=== PATIENT | female | born 1975 | race Caucasian/White ===

== ENCOUNTER 2021-10-15 20:00 | Emergency (ER) | payer SELFPAY ==
[2021-10-15 23:19] LABS: Urine Blood Negative (Negative); Urine Glucose Negative (Negative); Urine Protein Negative (Negative); Urine Specific Gravity >=1.030 (1.005-1.030); Urine pH 5.5 (5.0-7.0)
[2021-10-15] MEDS ORDERED: NA CHLORIDE 0.9% 1,000 ML ONE (23:58)
[2021-10-15] MEDS ORDERED: ONDANSETRON 4 MG/2 ML VIAL ONE (23:58)
[2021-10-15] MEDS ORDERED: MORPHINE 4 MG/ML SYR ONE (23:58)
[2021-10-15] MEDS ORDERED: NA CHLORIDE 0.9% 100 ML IV ONE (23:58)
[2021-10-15] MEDS ORDERED: CEFTRIAXONE 1000 MG/VIAL ONE (23:58)
[2021-10-16 00:11] LABS: Absolute Lymphocytes (CBC) 1.7 K/uL (0.7-4.9); Hematocrit 36.9 % (36.0-45.0); MPV 9.4 fL (7.6-11.3); RBC Red Blood Cell Count 4.23 M/uL (3.86-4.86)
[2021-10-16 00:24] LABS: Calcium Oxalate Crystals- Ur MANY (NONE SEEN)
[2021-10-16 00:25] LABS: Urine Bacteria 20-50 /HPF (<20); Urine RBC <5 /HPF (NONE SEEN); Urine Urothelial Cells <5 /HPF (NONE SEEN)
[2021-10-16 00:26] LABS: Albumin 3.9 g/dL (3.4-5.0); Bilirubin Total 1.1 mg/dL (0.2-1.0); Protein, Total 7.9 g/dL (6.4-8.2)
--- NOTE | 2021-10-16 03:15 | EDPHYS ---
Physician Documentation [facility] Name: Isela Stratton Age: 46 yrs Sex: Female : 1975 Arrival Date: 10/15/2021 Time: 20:04 Bed 14 Private MD: ED Physician Barrett Retana HPI: 10/15 23:30 This 46 yrs old Female presents to ER via Ambulatory with complaints of Urinary mh7 Problem, Flank Pain, Back Pain. 23:30 The patient complains of pain in the right flank. The pain radiates to the abdomen. mh7 Onset: The symptoms/episode began/occurred 10 day(s) ago. Modifying factors: The symptoms are alleviated by nothing. the symptoms are aggravated by nothing. Associated signs and symptoms: Pertinent positives: dysuria, hematuria, Pertinent negatives: diarrhea, dizziness, fever, urinary frequency, headache, nausea, pain radiating to the lower extremities, vomiting. Severity of pain: At its worst the pain was moderate 3 day(s) ago, in the emergency department the pain is unchanged. 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 - Social history:: Smoking status: Patient denies any tobacco usage or history of. ROS: 23:30 Constitutional: Negative for fever, chills, and weight loss, Eyes: Negative for injury, mh7 pain, redness, and discharge, ENT: Negative for injury, pain, and discharge, Neck: Negative for injury, pain, and swelling, Cardiovascular: Negative for chest pain, palpitations, and edema, Respiratory: Negative for shortness of breath, cough, wheezing, and pleuritic chest pain, MS/Extremity: Negative for injury and deformity, Skin: Negative for injury, rash, and discoloration, Neuro: Negative for headache, weakness, numbness, tingling, and seizure, Psych: Negative for depression, anxiety, suicide ideation, homicidal ideation, and hallucinations, Allergy/Immunology: Negative for hives, rash, and allergies, Endocrine: Negative for neck swelling, polydipsia, polyuria, polyphagia, and marked weight changes, Hematologic/Lymphatic: Negative for swollen nodes, abnormal bleeding, and unusual bruising. Exam: 23:30 Constitutional: This is a well developed, well nourished patient who is awake, alert, mh7 and in no acute distress. Head/Face: Normocephalic, atraumatic. Eyes: Pupils equal round and reactive to light, extra-ocular motions intact. Lids and lashes normal. Conjunctiva and sclera are non-icteric and not injected. Cornea within normal limits. Periorbital areas with no swelling, redness, or edema. Neck: Trachea midline, no thyromegaly or masses palpated, and no cervical lymphadenopathy. Supple, full range of motion without nuchal rigidity, or vertebral point tenderness. No Meningismus. Chest/axilla: Normal chest wall appearance and motion. Nontender with no deformity. No lesions are appreciated. Cardiovascular: Regular rate and rhythm with a normal S1 and S2. No gallops, murmurs, or rubs. Normal PMI, no JVD. No pulse deficits. Respiratory: Lungs have equal breath sounds bilaterally, clear to auscultation and percussion. No rales, rhonchi or wheezes noted. No increased work of breathing, no retractions or nasal flaring. Abdomen/GI: Soft, non-tender, with normal bowel sounds. No distension or tympany. No guarding or rebound. No evidence of tenderness throughout. 23:30 Skin: Warm, dry with normal turgor. Normal color with no rashes, no lesions, and no evidence of cellulitis. MS/ Extremity: Pulses equal, no cyanosis. Neurovascular intact. Full, normal range of motion. Neuro: Awake and alert, GCS 15, oriented to person, place, time, and situation. Cranial nerves II-XII grossly intact. Motor strength 5/5 in all extremities. Sensory grossly intact. Cerebellar exam normal. Normal gait. 23:30 Back: normal spinal alignment noted, CVA tenderness, that is moderate, is noted on the right, vertebral tenderness, is not appreciated, muscle spasm, is not present. 23:30 Psych: Awake, alert, with orientation to person, place and time. Behavior, mood, and 7 affect are within normal limits. Vital Signs: 20:32 BP 145 / 91; Pulse 91; Resp 16; Temp 97.5(TE); Pulse Ox 99% on R/A; Weight 84.82 kg jb4 (R); Height 5 ft. 8 in. (172.72 cm) (R); Pain 8/10; 10/16 00:26 BP 125 / 70; Pulse 77; Resp 16; Temp 98.3; Pulse Ox 98% on R/A; Pain 0/10; festus 01:18 BP 119 / 73; Pulse 85; Resp 16; Temp 97.3; Pulse Ox 100% on R/A; festus 02:00 BP 117 / 62; Pulse 81; Resp 16; Temp 97.5; Pulse Ox 100% on R/A; festus 03:13 BP 113 / 59; Pulse 80; Resp 16; Temp 98.2; Pulse Ox 100% on R/A; festus 10/15 20:32 Body Mass Index 28.43 (84.82 kg, 172.72 cm) jb4 MDM: 03:12 Differential diagnosis: nephrolithiasis, pyelonephritis, UTI, diverticulitis. Data [facility] reviewed: vital signs, nurses notes, lab test result(s), CBC, electrolytes, urinalysis, UPT: negative radiologic studies, CT scan. Data interpreted: Pulse oximetry: on room air is 100 %. Interpretation: normal. Counseling: I had a detailed discussion with the patient and/or guardian regarding: the historical points, exam findings, and any diagnostic results supporting the discharge/admit diagnosis, lab results, radiology results, the need for outpatient follow up, to return to the emergency department if symptoms worsen or persist or if there are any questions or concerns that arise at home. Response to treatment: the patient's symptoms have markedly improved after treatment, patient is well hydrated. Tolerating PO intake without difficulty. 03:15 Patient medically screened. [facility] 10/15 23:19 Order name: Urine Dipstick-Ancillary; Complete Time: 23:53 EDMS 10/15 23:20 Order name: Urine Microscopic Only; Complete Time: 00:46 [facility] 10/15 23:20 Order name: Urine Culture [facility] 10/15 23:21 Order name: CBC with Diff; Complete Time: 00:46 [facility] 10/15 23:21 Order name: CMP; Complete Time: 00:46 [facility] 10/15 23:21 Order name: Lipase; Complete Time: 00:46 [facility] 10/15 23:02 Order name: Urine Dipstick-Ancillary (obtain specimen); Complete Time: 23:20 lp1 10/16 00:24 Order name: Stone Protocol EDSD 10/15 23:21 Order name: IV Saline Lock; Complete Time: 00:01 lp1 10/15 23:21 Order name: Labs collected and sent; Complete Time: 00:01 lp1 10/15 23:21 Order name: Urine Test (obtain specimen); Complete Time: 23:26 lp1 Administered Medications: 00:00 Drug: NS 0.9% 1000 ml Route: IV; Rate: 1000 ml; Site: right antecubital; festus 03:10 Follow up: IV Status: Completed infusion; IV Intake: 1000ml fest[facility] 00:00 Drug: morphine 4 mg Route: IVP; Site: right antecubital; [facility] 01:19 Follow up: Response: No adverse reaction; Pain is decreased fest[facility] 03:09 Follow up: Response: No adverse reaction [facility] 00:00 Drug: Zofran (Ondansetron) 4 mg Route: IVP; Site: right antecubital; [facility]us 01:19 Follow up: Response: No adverse reaction [facility] 03:09 Follow up: Response: No adverse reaction [facility] 00:00 Drug: Rocephin (cefTRIAXone) 1 grams Route: IV; Rate: per protocol; Site: right festus antecubital; 01:19 Follow up: IV Status: Completed infusion; IV Intake: 100ml [facility] 03:09 Follow up: IV Status: Completed infusion; IV Intake: 100ml festus Disposition Summary: 10/16/21 03:15 Discharge Ordered Location: Home [facility] Problem: new [facility] Symptoms: have improved [facility] Condition: Stable [facility] Diagnosis - Pyelonephritis acute [facility] Followup: [facility] - With: Private Physician - When: 1 - 2 days - Reason: Worsening of condition, Recheck today's complaints, Continuance of care, Re-evaluation by your physician Discharge Instructions: - Discharge Summary Sheet [facility] - Pyelonephritis, Adult, [id number] [facility] Forms: - Medication Reconciliation Form [facility] - Thank You Letter [facility] - Antibiotic Education [facility] - Prescription Opioid Use [facility] Prescriptions: - Ibuprofen 800 mg Oral Tablet - take 1 tablet by ORAL route every 8 hours As needed take with food; 15 tablet; [facility] Refills: 0, Product Selection Permitted - Cipro 500 mg Oral Tablet - take 1 tablet by ORAL route every 12 hours for 10 days; 20 tablet; Refills: 0, mh7 Product Selection Permitted Signatures: Dispatcher [employer] EDBritt Aguilar, CATRACHITA RN lp1 Truman Gama, PAIRER SUBSTANDARD-C PAIRER SUBSTANDARD-Cla1 Oc Owens RN RN jb4 Barrett Retana MD MD 7 Susan Finch RN RN festus Corrections: (The following items were deleted from the chart) 00:24 10/15 23:29 Abdomen Pelvis Wo [id number].BRZ ordered. EDMS EDMS
--- NOTE | 2021-10-16 03:15 | ER ---
Nurse's Notes [facility] Name: Isela Stratton Age: 46 yrs Sex: Female : 1975 Arrival Date: 10/15/2021 Time: 20:04 Bed 14 Private MD: Diagnosis: Pyelonephritis acute Presentation: 10/15 20:32 Chief complaint: Patient states: I think I have a kidney stone or kidney infection. The jb4 pain is on my right side and goes to my right lower back. Coronavirus screen: At this time, the client does not indicate any symptoms associated with coronavirus-19. Ebola Screen: No symptoms or risks identified at this time. Initial Sepsis Screen: Does the patient meet any 2 criteria? No. Patient's initial sepsis screen is negative. Does the patient have a suspected source of infection? Yes: Dysuria/Frequency/Urgency/UTI. Risk Assessment: Do you want to hurt yourself or someone else? Patient reports no desire to harm self or others. Onset of symptoms was October 15, 2021. Transition of care: patient was not received from another setting of care. 20:32 Method Of Arrival: Ambulatory jb4 20:32 Acuity: AMARILIS 3 jb4 Triage Assessment: 10/16 00:27 General: Appears. festus 03:12 General: Behavior is calm, cooperative. festus 03:12 Pain: Denies pain. 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 - Social history:: Smoking status: Patient denies any tobacco usage or history of. Screenin/16 00:27 Abuse screen: Denies threats or abuse. Denies injuries from another. Nutritional festus screening: No deficits noted. Tuberculosis screening: No symptoms or risk factors identified. Fall Risk None identified. Assessment: 10/15 23:20 Reassessment: No changes from previously documented assessment. I recv'd the pt to room festus #14 at 2300. She appears to be in NAD. 10/16 03:12 Neuro: Level of Consciousness is awake, alert, obeys commands. festus Vital Signs: 10/15 20:32 BP 145 / 91; Pulse 91; Resp 16; Temp 97.5(TE); Pulse Ox 99% on R/A; Weight 84.82 kg jb4 (R); Height 5 ft. 8 in. (172.72 cm) (R); Pain 8/10; 10/16 00:26 BP 125 / 70; Pulse 77; Resp 16; Temp 98.3; Pulse Ox 98% on R/A; Pain 0/10; festus 01:18 BP 119 / 73; Pulse 85; Resp 16; Temp 97.3; Pulse Ox 100% on R/A; festus 02:00 BP 117 / 62; Pulse 81; Resp 16; Temp 97.5; Pulse Ox 100% on R/A; festus 03:13 BP 113 / 59; Pulse 80; Resp 16; Temp 98.2; Pulse Ox 100% on R/A; festus 05 20:32 Body Mass Index 28.43 (84.82 kg, 172.72 cm) jb4 ED Course: 10/15 20:04 Patient arrived in ED. ja2 20:34 Triage completed. jb4 20:34 Arm band placed on right wrist. jb4 23:02 Barrett Retana MD is Attending Physician. 7 23:20 Susan Finch, RN is Primary Nurse. festus 10/16 00:01 CBC with Diff Sent. festus 00:01 CMP Sent. festus 00:01 Lipase Sent. festus 00:01 Urine Culture Sent. festus 00:01 Urine Microscopic Only Sent. festus 00:25 CMP Sent. festus 00:25 Lipase Sent. festus 00:33 Stone Protocol In Process Unspecified. EDMS 03:12 Bed in low position. Call light in reach. Side rails up X 1. festus 03:12 No provider procedures requiring assistance completed. festus 03:26 IV discontinued, No redness/swelling at site. Pressure dressing applied. lp1 Administered Medications: 00:00 Drug: NS 0.9% 1000 ml Route: IV; Rate: 1000 ml; Site: right antecubital; festus 03:10 Follow up: IV Status: Completed infusion; IV Intake: 1000ml festus 00:00 Drug: morphine 4 mg Route: IVP; Site: right antecubital; festus 01:19 Follow up: Response: No adverse reaction; Pain is decreased festus 03:09 Follow up: Response: No adverse reaction festus 00:00 Drug: Zofran (Ondansetron) 4 mg Route: IVP; Site: right antecubital; festus 01:19 Follow up: Response: No adverse reaction festus 03:09 Follow up: Response: No adverse reaction festus 00:00 Drug: Rocephin (cefTRIAXone) 1 grams Route: IV; Rate: per protocol; Site: right festus antecubital; :19 Follow up: IV Status: Completed infusion; IV Intake: 100ml festus 03:09 Follow up: IV Status: Completed infusion; IV Intake: 100ml festus Medication: 03:13 VIS not applicable for this client. festus Intake: :19 IV: 100ml; Total: 100ml. festus 03:09 IV: 100ml; Total: 200ml. festus 03:10 IV: 1000ml; Total: 1200ml. festus Outcome: 03:12 Condition: stable festus 03:15 Discharge ordered by . marciano 03:26 Discharged to home ambulatory, with significant other. lp1 03:26 Condition: good 03:26 Discharge instructions given to patient, Instructed on discharge instructions, follow up and referral plans. medication usage, Demonstrated understanding of instructions, follow-up care, medications, Prescriptions given X 2. 03:26 Patient left the ED. lp1 Signatures: Dispatcher [employer] EDBritt Aguilar, RN RN lp1 Oc Owens RN RN jb4 Barrett Retana MD MD mh7 Alexander, Jessica ja2 O'Farrell, Brenda, RN RN bo
[2021-10-16 03:55] VITALS: O2SAT 100
[2021-10-16 03:58] VITALS: BP 113/59; TEMP 98.2
--- NOTE | 2021-10-16 14:35 | RAD REPORT ---
EXAM DESCRIPTION: CT - Stone Protocol - 10/16/2021 7:05 am CLINICAL HISTORY: 46 years, Female, Flank pain, kidney stone suspected COMPARISON: None TECHNIQUE: Multiple transaxial tomograms of the abdomen and pelvis were performed from the lung base s to the symphysis pubis 3 mm slice thickness at 3 mm interval reconstruction, without administration of IV and oral contrast. Multiplanar reformats in the sagittal and coronal plane were generated and reviewed. This exam was performed according to our departmental dose-optimization protocol, which includes auto mated exposure control, adjustment of the mA and/or kV according to patient size and/or use of iterat margarito reconstruction technique. FINDINGS: The lack of IV and oral contrast limits evaluation of solid organs, subtle lesions cannot be excluded. The lung bases demonstrate dependent atelectatic changes. There are bilateral breast implants Grossly the unopacified liver is increased in size. The, gallbladder, pancreas, spleen and adrenal glands demonstrate to be within normal limits, no sign ificant focal lesions were identified. The kidneys demonstrate grossly unremarkable. There is no evidence for nephrolithiasis and/or hydro nephrosis. No focal masses were demonstrated. The ureters displays normal appearance with normal caliber, no hydroureter was seen. Grossly the unopacified stomach, small bowel and large bowel demonstrate to be within normal limits. There is no evidence for bowel dilatation/or free air. The urinary bladder demonstrate to be within normal limits. The uterus is prominent suggesting the po ssibility of fibroids. There are no adnexal masses The aorta demonstrate to be within normal limits. There is no retroperitoneal lymphadenopathy. There is no evidence for ascites. The rest of the so ft tissue demonstrate to be grossly unremarkable. IMPRESSION: No evidence for nephrolithiasis and/or hydronephrosis. Prominent uterus suggesting the possibility of fibroids. Hepatomegaly. Electronically signed by: Felix Guajardo MD 10/16/2021 1:03 AM CDT Due to temporary technical issues with the PACS/Fluency reporting system, reports are being signed by the in house radiologist without review as a courtesy to ensure prompt reporting. The interpreting r adiologist is fully responsible for the content of the report.
== END 2021-10-16 03:26 | disposition home or self-care (01) ==
LOC: ER 20:00
DX: N10 Acute pyelonephritis (principal); E03.9 Hypothyroidism, unspecified
CPT/HCPCS: 36415; 74176; 76377; 80053; 81003; 81015; 83690; 85025; 87086; 87088; 96361; 96365; 96375; 99284; J2405; J7030